=== PATIENT | female | born 1965 | race American Indian/Alaskan Native ===

== ENCOUNTER 2017-05-01 10:49 | Emergency (ER) | payer MEDICARE, OTHER ==
[2017-05-01 11:02] VITALS: BP 119/83; PULSE 88; RESP 20; TEMP 98; O2SAT 97; BMI 51.5
--- NOTE | 2017-05-01 11:29 | C.PDOC ---
History Of Present Illness Domi Moe is a 51 year old female who presents to the ED complaining of 4 days of redness and itching to both eyes, left worse than right. States her mother was diagnosed with conjunctivitis and has been using eye drops. Also reports she has been coughing for over 1 week. Cough is productive of yellow-brown phlegm. PMD: Dr. Stefan Brooks Time Seen by Provider: 05/01/17 11:09 Chief Complaint (Nursing): Cough, Cold, Congestion History Per: Patient History/Exam Limitations: no limitations Onset/Duration Of Symptoms: Days (x 1 week) Current Symptoms Are (Timing): Still Present Associated Symptoms: Cough, Sputum Past Medical History Reviewed: Historical Data, Nursing Documentation, Vital Signs Vital Signs: Last Vital Signs Temp 98.0 F 05/01/17 11:02 Pulse 88 05/01/17 11:02 Resp 20 05/01/17 11:02 BP 119/83 05/01/17 11:02 Pulse Ox 97 05/01/17 18:39 - Medical History PMH: Asthma, Bipolar Disorder, Bronchitis, HTN Other Surgeries: Sinus surgery Family History: States: Unknown Family Hx - Social History Hx Tobacco Use: Yes Hx Alcohol Use: No Hx Substance Use: No - Immunization History Hx Tetanus Toxoid Vaccination: No Hx Influenza Vaccination: Yes Hx Pneumococcal Vaccination: No Review Of Systems Except As Marked, All Systems Reviewed And Found Negative. Constitutional: Negative for: Fever Eyes: Positive for: Redness, Other (Itching) Respiratory: Positive for: Cough, Sputum Physical Exam - Physical Exam Appears: Non-toxic, No Acute Distress Skin: Normal Color, Warm, Dry Head: Atraumatic, Normacephalic Eye(s): bilateral: PERRL, EOMI, Other (Conjunctival erythema) Ear(s): Bilateral: Normal Nose: Normal Oral Mucosa: Moist Throat: Normal Neck: Normal, Normal ROM Cardiovascular: Rhythm Regular Respiratory: Normal Breath Sounds, No Rales, No Rhonchi, No Wheezing Neurological/Psych: Oriented x3, Normal Speech ED Course And Treatment O2 Sat by Pulse Oximetry: 97 (RA) Pulse Ox Interpretation: Normal Medical Decision Making Medical Decision Making: Time: 11:22 Clinical Impression: 51 year old female with bronchitis and conjunctivitis Plan: Patient is medically stable. Will discharge with prescriptions for Tobrex drops , Tylenol Extra Strength, Albuterol inhaler, and Zithromax. Patient is to follow up with PMD. There is agreement to discharge plan. Return if symptoms persist or worsen. Disposition Counseled Patient/Family Regarding: Diagnosis, Need For Followup, Rx Given - Disposition Referrals: Stefan Brooks MD [Staff Provider] - Disposition: HOME/ ROUTINE Disposition Time: 11:22 Condition: STABLE Additional Instructions: FOLLOW UP WITH DR. BROOKS IN 2 DAYS FOR RE-EVALUATION. IF SYMPTOMS GET WORSE OR ANY NEW CONCERNING SYMPTOMS DEVELOP RETURN TO ED. 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 - Scribe Statement The provider has reviewed the documentation as recorded by the Soibrashard Ward All medical record entries made by the Kike were at my direction and personally dictated by me. I have reviewed the chart and agree that the record accurately reflects my personal performance of the history, physical exam, medical decision making, and the department course for this patient. I have also personally directed, reviewed, and agree with the discharge instructions and disposition.
== END 2017-05-01 11:30 | disposition home or self-care (01) ==
LOC: C.ER 10:49
DX: H10.9 Unspecified conjunctivitis (principal); J40 Bronchitis, not specified as acute or chronic; I10 Essential (primary) hypertension; Z87.891 Personal history of nicotine dependence

== ENCOUNTER 2017-12-11 15:48 | Emergency (ER) | payer MEDICARE, OTHER ==
[2017-12-11 15:48] VITALS: BMI 51.5
[2017-12-11 16:10] VITALS: BP 133/89; PULSE 93; RESP 16; TEMP 98.8; O2SAT 98
--- NOTE | 2017-12-11 16:20 | C.PDOC ---
History Of Present Illness 52 year old female presents to the ED complaining of dental pain since yesterday. She states she has had a chipped tooth for over a year with no pain until yesterday when she was eating another piece of tooth chipped off causing pain. Patient reports she took Tylenol with mild relief. She denies any fever, headache, cough, difficulty breathing, difficulty swallowing, vomiting, or diarrhea. Time Seen by Provider: 12/11/17 16:07 Chief Complaint (Nursing): Dental Pain History Per: Patient History/Exam Limitations: no limitations Onset/Duration Of Symptoms: Days Current Symptoms Are (Timing): Still Present Quality: Positive for: "Pain" Past Medical History Reviewed: Historical Data, Nursing Documentation, Vital Signs Vital Signs: Last Vital Signs Temp 98.8 F 12/11/17 16:07 Pulse 93 H 12/11/17 16:07 Resp 16 12/11/17 16:07 BP 133/89 12/11/17 16:07 Pulse Ox 98 12/11/17 16:40 - Medical History PMH: Asthma, Bipolar Disorder, Bronchitis, HTN Other Surgeries: Hx of surgeries Family History: States: Unknown Family Hx - Social History Hx Tobacco Use: Yes Hx Alcohol Use: No Hx Substance Use: No - Immunization History Hx Tetanus Toxoid Vaccination: No Hx Influenza Vaccination: Yes Hx Pneumococcal Vaccination: No Review Of Systems Except As Marked, All Systems Reviewed And Found Negative. Constitutional: Negative for: Fever, Chills ENT: Positive for: Mouth Pain Respiratory: Negative for: Cough Gastrointestinal: Negative for: Vomiting, Diarrhea Neurological: Positive for: Headache Physical Exam - Physical Exam Appears: Non-toxic, No Acute Distress Skin: Normal Color, Warm, Dry Head: Atraumatic, Normacephalic Eye(s): bilateral: Normal Inspection, EOMI Nose: Normal Oral Mucosa: Moist Tongue: Normal Appearing Lips: Normal Appearing Teeth: No Normal Dentition (Poor dentition ), Caries (Large mac to left maxillary canine ), No Tender To Palpation Gingiva: Normal Appearing Throat: Normal Neck: Normal ROM, Supple Chest: Symmetrical Cardiovascular: Rhythm Regular Respiratory: Normal Breath Sounds, No Accessory Muscle Use Extremity: Normal ROM Neurological/Psych: Oriented x3, Normal Speech Gait: Steady ED Course And Treatment O2 Sat by Pulse Oximetry: 98 (RA) Pulse Ox Interpretation: Normal Progress Note: Patient assessed and examined. Patient given Cleocin 300mg PO, Ultram 50mg PO and Lidocaine 2% 15ml PO. On reassessment, patient is resting comfortably, is in no acute distress, and is tolerating PO. Patient was instructed to follow up with Dentist in 1-2 days for further evaluation. Patient given Rx for Cleocin and Ultram. Disposition - Disposition Disposition: HOME/ ROUTINE Disposition Time: 16:22 Condition: STABLE Additional Instructions: Follow up with the dentist in 2-5 days for further evaluation. Take medications as prescribed. Return to the emergency department at any time if symptoms persist or worsen. You may call [facility] for any assistance . 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 - Scribe Statement The provider has reviewed the documentation as recorded by the Soibrashard Penn All medical record entries made by the Kike were at my direction and personally dictated by me. I have reviewed the chart and agree that the record accurately reflects my personal performance of the history, physical exam, medical decision making, and the department course for this patient. I have also personally directed, reviewed, and agree with the discharge instructions and disposition.
== END 2017-12-11 16:40 | disposition home or self-care (01) ==
LOC: C.ER 15:48
DX: K02.9 Dental caries, unspecified (principal); I10 Essential (primary) hypertension; Z87.891 Personal history of nicotine dependence